=== PATIENT | male | born 1960 | race Caucasian/White ===

== ENCOUNTER 2019-11-17 03:05 | Outpatient (CLI) | payer BC, SELFPAY ==
[2019-11-18 22:32] LABS: SARS-CoV-2 RNA PCR Negative
== END 2019-11-17 03:06 | disposition home or self-care (01) ==
LOC: ANHCOVIDDT 03:06
PROVIDERS: Visit Provider Internal Medicine Gastroenterology
DX: Z01.812 Encounter for preprocedural laboratory examination (principal); Z11.59 Encounter for screening for other viral diseases
CPT/HCPCS: 87635; C9803; U0003

== ENCOUNTER 2019-11-19 01:55 | Day surgery (SDC) | payer BC, SELFPAY ==
[2019-11-10 14:15] VITALS: BMI 24.9
[2019-11-19 07:53] VITALS: BP 118/58; PULSE 66; RESP 16; TEMP 36.1; O2SAT 99; BMI 25.1
[2019-11-19] MEDS: LACTATED RINGERS 1,000 ML 150 ML IV CONT (08:07)
--- NOTE | 2019-11-19 09:00 | WPDGICN ---
Assessment and Plan Assessment and plan (1) History of colon polyps: Code(s): Z86.010 - Personal history of colonic polyps Status: Acute Assessment and Plan: Patient has multiple colon polyps removed from the colon in 2016. Patient presents today for follow-up examination to evaluate for recurrent colon polyps. High-fiber diet is advised. Follow up At 3-5 year intervals in the future is advised (2) Family history of colon cancer in father: Code(s): Z80.0 - Family history of malignant neoplasm of digestive organs Status: Acute Assessment and Plan: patient's father has had colon cancer his mother had colon polyps. Patient himself is had colon polyps for all these reasons continued surveillance exam at 3-5 years in the future is advised. GI Consult Note Consult date/time: 11/19/19 09:00 HPI: Judson Grover is a 58 year old male seen in evaluation at the request fo Dr Cochran. Patient presents for screening colonoscopy. Patient has a history of multiple colon polyps removed from the colon 4 years ago. 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 He returns today for follow-up examination he states that his current weight appetite bowel movements are normal. He denies any blood in his stools. His family history is significant his father had colon cancer his mother has had colon polyps. Review of Systems Review of Systems: All systems reviewed & are unremarkable except as noted in HPI and below PMFSH Past Medical History Medical History (Updated 11/19/19 @ 09:08 by Long Zuñiga MD) Healthy adult Social History Social History (Updated 11/19/19 @ 09:08 by Long Zuñiga MD) Smoking packs per day: 0.5 Smoking cigarettes per day: 10.0 Smoking status: Current every day smoker Meds Home Medications and Allergies Home Medications Medication Instructions Recorded Confirmed Type No Home Medications 11/10/19 11/19/19 History Allergies Allergy/AdvReac Type Severity Reaction Status Date / Time No Known Allergies Allergy Verified 11/19/19 07:52 Vital Signs Vital Signs - 24 hr 11/19/19 07:53 Temperature 97.0 F L Pulse Rate 66 Respiratory Rate 16 Blood Pressure 118/58 L Pulse Oximetry 99 Exam Narrative: Exam Narrative: Physical exam reveals patient to be alert. Vital signs stable. HEENT exam unremarkable. Lungs are clear to auscultation and percussion. Heart is without murmur or extra sounds. Abdominal exam bowel sounds are present soft nontender without organomegaly. Digital external rectal exam normal.
--- NOTE | 2019-11-19 09:07 | WPDANESEPPF ---
Anes - Initial Pre Proc Eval Procedure: Operation Date: 11/19/19 09:00 Proposed Procedures p Screening Colonoscopy - Judson Veloz MD Date/Time: 11/19/19 09:07 Surgeon: Judson Veloz MD Pre Op Diagnosis: Neoplasm Screening,Personal Hx Of Colon Polyps Patient Data Age: 58 Gender: M Height: 5 ft 6 in Weight: 70.6 kg Last Vital Signs Temp 97.0 F L 11/19/19 07:53 Pulse 66 11/19/19 07:53 Resp 16 11/19/19 07:53 BP 118/58 L 11/19/19 07:53 Pulse Ox 99 11/19/19 07:53 Allergies Allergy/AdvReac Type Severity Reaction Status Date / Time No Known Allergies Allergy Verified 11/19/19 07:52 Home Medications Medication Instructions Recorded Confirmed Type No Home Medications 11/10/19 11/19/19 History Patient hx anesthesia problems: none Family hx anesthesia problems: none [facility] Past Medical History Medical History (Updated 11/19/19 @ 09:08 by Long Zuñiga MD) Healthy adult Social History Social History (Updated 11/19/19 @ 09:08 by Long Zuñiga MD) Smoking packs per day: 0.5 Smoking cigarettes per day: 10.0 Smoking status: Current every day smoker Anes - Eval Final PreProcedure Day of Procedure 11/19/19 09:07 Patient weight: normal Heart: regular rate and rhythm Lungs: clear to auscultation Airway: Mallampati scale class II Neurological: alert and oriented Last oral intake: >/= 8 hours ASA classification: II Emergent: no Anesthetic plan: proceed Anesthesia type and monitoring: general GIVS and standard monitoring Informed Consent: The patient's anesthetic plan and its attendant risks and benefits were discussed with the patient/family/POA. Questions were solicited and answers provided to the satisfaction of the patient/family/POA.
[2019-11-19 09:25] VITALS: BP 95/48; PULSE 62; RESP 20; O2SAT 95
[2019-11-19 09:35] VITALS: BP 102/67; PULSE 59; RESP 24; O2SAT 100
[2019-11-19 09:45] VITALS: BP 117/61; PULSE 56; RESP 14; O2SAT 100
== END 2019-11-19 09:58 | disposition home or self-care (01) ==
PROVIDERS: Visit Provider Internal Medicine Gastroenterology
PROC: 0DJD8ZZ Inspection of Lower Intestinal Tract, Via Natural or Artificial Opening Endoscopic (ICD-10-PCS; CPT 45378; principal; 2019-11-19 09:00)
DX: Z12.11 Encounter for screening for malignant neoplasm of colon (principal); K64.8 Other hemorrhoids; Z86.010 Personal history of colon polyps; Z80.0 Family history of malignant neoplasm of digestive organs; F17.210 Nicotine dependence, cigarettes, uncomplicated
CPT/HCPCS: 45378; J2704; J7120

== ENCOUNTER 2020-08-16 08:25 | Outpatient (CLI) | payer BC, SELFPAY | END 2020-08-16 08:26 | disposition home or self-care (01) | LOC: ANHCOVIDVC 08:26 | DX: Z23 Encounter for immunization (principal) | CPT/HCPCS: 0001A; 91300 ==

== ENCOUNTER 2020-09-06 08:25 | Outpatient (CLI) | payer BC, SELFPAY | END 2020-09-06 08:26 | disposition home or self-care (01) | LOC: ANHCOVIDVC 08:25 | DX: Z23 Encounter for immunization (principal) | CPT/HCPCS: 0002A; 91300 ==

== ENCOUNTER → 2021-08-17 09:32 | Outpatient (CLI) | payer BC, SELFPAY ==
--- NOTE | ~2021-08-17 | CT_ITS ---
EXAMINATION: CT lung screening DATE: 08/17/2021 10:10 INDICATION: Nicotine dependence, unspecified, uncomplicated TECHNIQUE: Computed tomography (CT) of the chest was performed without intravenous contrast. Addition al 3D reconstructions utilizing coronal maximum intensity projection (MIP) were performed. Automated exposure control and iterative reconstruction technique were employed. The dose-length product was 10 3.15 mGy-cm. COMPARISON: None FINDINGS: Lungs are clear with no suspicious pulmonary nodules, pneumonia, pulmonary edema or pleural effusion. Heart size is normal. No pericardial effusion. Thoracic aorta is normal in caliber thoracic. Mild th oracic spondylosis with bridging osteophytes at multiple levels consistent with diffuse idiopathic sk eletal hyperostosis (DISH). IMPRESSION: 1. Lung-RADS category 1: Negative. Continue annual screening with noncontrast low-dose chest CT in 12 months. Reviewed, dictated and finalized at location B. IMPRESSION: 1. Lung-RADS category 1: Negative. Continue annual screening with noncontrast l ow-dose chest CT in 12 months.
== END ==
PROVIDERS: PCP Family Medicine; Visit Provider Family Medicine
DX: Z12.2 Encounter for screening for malignant neoplasm of respiratory organs (principal); F17.200 Nicotine dependence, unspecified, uncomplicated
CPT/HCPCS: 71271

== ENCOUNTER → 2022-10-05 10:34 | Outpatient (CLI) | payer BC, SELFPAY ==
--- NOTE | ~2022-10-05 | CT_ITS ---
EXAMINATION: CT lung screening DATE: 10/05/2022 10:47 INDICATION: Personal history of nicotine dependence, current smoker with 20 to pack year history TECHNIQUE: Computed tomography (CT) of the chest was performed without intravenous contrast. The dose -length product (DLP) was 89.38 mGy-cm. Automated exposure control and iterative reconstruction techn [employer] were employed. COMPARISON: 07/28/2021 FINDINGS: The lungs are free of acute opacities. No suspicious pulmonary nodules are identified. Ther e is mucous in the distal trachea near the sai. No pleural effusion or pneumothorax. No pathologic ally enlarged thoracic lymph nodes are identified. The heart size is normal. There are bridging osteo phytes at multiple levels in the spine, consistent with diffuse idiopathic skeletal hyperostosis (DIS H). IMPRESSION: 1. Lung-RADS category 1: Negative. Continue annual screening with noncontrast low-dose chest CT in 12 months. Reviewed, dictated and finalized at location A. IMPRESSION: 1. Lung-RADS category 1: Negative. Continue annual screening with noncontrast l ow-dose chest CT in 12 months.
== END ==
PROVIDERS: PCP Family Medicine; Visit Provider Family Medicine
DX: Z12.2 Encounter for screening for malignant neoplasm of respiratory organs (principal); F17.210 Nicotine dependence, cigarettes, uncomplicated
CPT/HCPCS: 71271